=== PATIENT | female | born 1955 | race African-American/Black ===

== ENCOUNTER 2018-08-14 11:52 | Inpatient (IN) | payer MEDICAID, OTHER ==
[~2018-08-14] VITALS: Ht 172.7 cm; Wt 85.3 kg
[2018-08-14] MEDS ORDERED: KETOROLAC 30MG/ML VIAL IV ONE (12:30)
[2018-08-14 14:08] LABS: HEMATOCRIT. 37.9 % (36.0-48.0); HEMOGLOBIN. 12.5 g/dL (12.0-16.0); MEAN CORPUSCULAR HEMOGLOBIN 29.2 pg (28.0-32.0); MEAN CORPUSCULAR VOLUME 88.3 fL (81.0-99.0); MEAN PLATELET VOLUME 8.5 fl (7.4-10.4); PLATELET 353 x1000/uL (130-400); RED BLOOD CELL COUNT 4.29 mill/uL (4.2-5.4); RED CELL DISTRIBUTION WIDTH 13.7 % (11.6-14.6)
[2018-08-14 14:16] LABS: CHLORIDE 101 mEq/L (98-107); ETHANOL BLOOD < 10 mg/dL
[2018-08-14 14:24] LABS: PLATELET ESTIMATE NORMAL
[2018-08-14] MEDS ORDERED: SODIUM CHLORIDE 0.9% 500 ML IV ONE (14:45)
[2018-08-14 18:32] VITALS: BP 91/66
[2018-08-14 20:00] VITALS: BP 150/68
[2018-08-14] MEDS ORDERED: CLONIDINE 0.1MG TABLET PO PRN (20:30)
[2018-08-14] MEDS ORDERED: ACETAMINOPHEN 325MG TABLET PO PRN (20:30)
[2018-08-14] MEDS ORDERED: DEXTROSE 50% WATER 50ML SYRINGE IV PRN (20:45)
[2018-08-14] MEDS ORDERED: ENOXAPARIN 40MG/0.4ML SYR SUBCUT SCH (21:00)
[2018-08-14] MEDS: LOSARTAN POTASSIUM 25 MG TABLET PO SCH (21:39)
[2018-08-14] MEDS: BLOOD SUGAR DIAGNOSTIC STRIP TEST SCH (21:41)
[2018-08-15] VITALS: BP 138/72
[2018-08-15 00:04] LABS: CREATINE KINASE MB FRACTION 1.7 ng/mL (0.5-3.6)
[2018-08-15] MEDS ORDERED: ENOXAPARIN 60MG/0.6ML SYR SUBCUT NR (02:00)
[2018-08-15 04:00] VITALS: BP 111/57
[2018-08-15] MEDS: BLOOD SUGAR DIAGNOSTIC STRIP TEST SCH ×3 (05:46→18:00)
[2018-08-15 06:50] LABS: PROTHROMBIN TIME 9.9 sec (9.1-11.1)
[2018-08-15 06:54] LABS: BASOPHILS % 0.2 % (0.0-2.0); EOSINOPHILS % 2.1 % (0.0-5.0); HEMATOCRIT. 35.3 % (36.0-48.0); HEMOGLOBIN. 11.8 g/dL (12.0-16.0); LYMPHOCYTES % 27.5 % (20.0-50.0); MEAN CORPUSCULAR HEMOGLOBIN 29.8 pg (28.0-32.0); MEAN PLATELET VOLUME 9.1 fl (7.4-10.4); MONOCYTES % 6.7 % (2.0-8.0); NEUTROPHILS % 63.5 % (40.0-76.0); PLATELET 330 x1000/uL (130-400); RED BLOOD CELL COUNT 3.97 mill/uL (4.2-5.4)
[2018-08-15 07:12] LABS: *AMPHETAMINES SCREEN URINE NEGATIVE (NEGATIVE); *BARBITURATES SCREEN URINE NEGATIVE (NEGATIVE); *BENZODIAZEPINES SCREEN URINE NEGATIVE (NEGATIVE); *COCAINE SCREEN URINE PRESUMTIVE POSITIVE (NEGATIVE)
[2018-08-15 07:14] LABS: CANNABINOID URINE SCREEN PRESUMTIVE POSITIVE (NEGATIVE); METHADONE URINE SCREEN NEGATIVE (NEGATIVE); OPIATES URINE SCREEN NEGATIVE (NEGATIVE); PHENCYCLIDINE URINE SCREEN NEGATIVE (NEGATIVE)
[2018-08-15 07:21] LABS: CREATINE KINASE MB FRACTION 1.7 ng/mL (0.5-3.6)
[2018-08-15 08:00] VITALS: BP 150/72
[2018-08-15] MEDS ORDERED: LOSARTAN POTASSIUM 25 MG TABLET PO ONE (09:00)
[2018-08-15] MEDS: LOSARTAN POTASSIUM 25 MG TABLET PO SCH (09:37)
[2018-08-15] MEDS: SODIUM CHLORIDE 0.9% 1,000 ML IV SCH (11:45)
[2018-08-15 12:00] VITALS: BP 140/72
[2018-08-15] MEDS: ENOXAPARIN 100MG/ML SYR SUBCUT SCH (13:59)
[2018-08-15] MEDS: ASPIRIN 81MG EC TABLET PO SCH (15:10)
[2018-08-15] MEDS: AMLODIPINE 2.5MG TABLET PO SCH (15:14)
[2018-08-15 16:00] VITALS: BP 141/62
[2018-08-15 16:34] LABS: CREATINE KINASE 79 IU/L (26-192); CREATINE KINASE MB FRACTION < 1.0 ng/mL (0.5-3.6)
[2018-08-15 20:00] VITALS: BP 145/51
[2018-08-16] VITALS (7 sets, daily range): BP systolic 132–186; BP diastolic 59–85
[2018-08-16] MEDS: BLOOD SUGAR DIAGNOSTIC STRIP TEST SCH ×3 (00:11→12:10)
[2018-08-16] MEDS: ENOXAPARIN 100MG/ML SYR SUBCUT SCH ×2 (02:35→15:59)
[2018-08-16] MEDS: SODIUM CHLORIDE 0.9% 1,000 ML IV SCH (04:43)
[2018-08-16 07:16] LABS: CHLORIDE 108 mEq/L (98-107)
[2018-08-16 07:18] LABS: BASOPHILS % 0.4 % (0.0-2.0); EOSINOPHILS % 2.5 % (0.0-5.0); HEMATOCRIT. 35.2 % (36.0-48.0); HEMOGLOBIN. 11.7 g/dL (12.0-16.0); MEAN CORPUSCULAR HEMOGLOBIN 29.7 pg (28.0-32.0); MEAN CORPUSCULAR VOLUME 89.6 fL (81.0-99.0); MEAN PLATELET VOLUME 9.1 fl (7.4-10.4); MONOCYTES % 7.5 % (2.0-8.0); NEUTROPHILS % 62.6 % (40.0-76.0); PLATELET 290 x1000/uL (130-400); RED BLOOD CELL COUNT 3.93 mill/uL (4.2-5.4); RED CELL DISTRIBUTION WIDTH 13.8 % (11.6-14.6)
[2018-08-16 07:51] LABS: HDL CHOLESTEROL 43 mg/dL (40-59); LDL CHOLESTEROL 83 mg/dL (5-100)
[2018-08-16] MEDS: AMLODIPINE 2.5MG TABLET PO SCH ×2 (09:00→12:18)
[2018-08-16] MEDS: LOSARTAN POTASSIUM 25 MG TABLET PO SCH (10:08)
[2018-08-16] MEDS: ASPIRIN 81MG EC TABLET PO SCH (10:08)
[2018-08-16] MEDS ORDERED: AMLODIPINE 10MG TABLET PO SCH (16:30)
[2018-08-16] MEDS ORDERED: HYDROCHLOROTHIAZIDE 25MG TABLET PO SCH (16:30)
[2018-08-16] MEDS ORDERED: INFLUENZA VIRUS VACCINE(AFLURIA) 0.5ML SYR IM ONE (17:30)
== END 2018-08-16 17:45 | disposition home or self-care (01) | DRG 190 ==
LOC: ER 12:14 → 5WST 15:05 → EDBEDREQTM 15:07 → EDBEDREQ 15:07 → ENRESERV 16:47
PROVIDERS: ADMIT Internal Medicine; ATTEND Internal Medicine
DX: I21.4 Non-ST elevation (NSTEMI) myocardial infarction (principal); I11.9 Hypertensive heart disease without heart failure; E86.0 Dehydration; I45.81 Long QT syndrome; D72.829 Elevated white blood cell count, unspecified; F14.10 Cocaine abuse, uncomplicated; J45.909 Unspecified asthma, uncomplicated; Z71.51 Drug abuse counseling and surveillance of drug abuser; Z91.013 Allergy to seafood; Z91.018 Allergy to other foods
CPT/HCPCS: 36415; 71045; 80048; 80061; 80305; 82550; 82553; 82962; 83036; 83735; 83880; 84443; 84484; 85379; 90686; 93005; 93306; 96361; 96374; 99285; G0482; J1650; J1885; J7030; J7040

== ENCOUNTER 2019-12-14 06:32 | Inpatient (IN) | payer MEDICAID ==
[~2019-12-14] VITALS: Ht 175.3 cm; Wt 91.6 kg
[2019-12-14] MEDS ORDERED: IPRATROPIUM BROMIDE (0.02%) 0.5MG/2.5ML NEB HHN STA (06:38)
[2019-12-14] MEDS ORDERED: ALBUTEROL (0.083%) 2.5MG/3ML NEB HHN STA (06:38)
[2019-12-14] MEDS ORDERED: MAGNESIUM 2 G PREMIX 50 ML IV STA (06:38)
[2019-12-14] MEDS ORDERED: METHYLPREDNISOLONE SOD SUCC 125 MG/2 ML VIAL IV STA (06:38)
[2019-12-14] MEDS ORDERED: ONDANSETRON HCL 4MG/2ML INJ IV STA (06:51)
[2019-12-14] MEDS ORDERED: SODIUM CHLORIDE 0.9% 1,000 ML IV ONE (06:51)
[2019-12-14] MEDS ORDERED: MORPHINE SULFATE 4 MG/ML CPJ (NOT FOR IM USE) IV STA (06:51)
[2019-12-14 07:48] LABS: INR 0.9
[2019-12-14 09:14] LABS: BASOPHILS % 0.3 % (0.0-2.0); EOSINOPHILS % 4.4 % (0.0-5.0); HEMATOCRIT. 33.3 % (36.0-48.0); LYMPHOCYTES % 19.9 % (20.0-50.0); MEAN CORPUSCULAR HEMOGLOBIN 29.3 pg (28.0-32.0); MEAN CORPUSCULAR VOLUME 89.3 fL (81.0-99.0); MEAN PLATELET VOLUME 8.9 fl (7.4-10.4); MONOCYTES % 3.3 % (2.0-8.0); NEUTROPHILS % 72.1 % (40.0-76.0); PLATELET 304 x1000/uL (130-400); RED BLOOD CELL COUNT 3.73 mill/uL (4.2-5.4); RED CELL DISTRIBUTION WIDTH 14.6 % (11.6-14.6)
[2019-12-14 09:17] LABS: CHLORIDE 110 mEq/L (98-107)
[2019-12-14 09:29] LABS: BG BASE EXCESS -2.4 mmol/L (-2.0-2.0); BG CARBOXYHEMOGLOBIN 0.2 % (0.5-1.5); BG DEOXYHEMOGLOBIN 3.4 % (0.0-5.0); BG FRACTION INSPIRED OXYGEN 21; BG HCO3 ACT 22.4 mmol/L (22.0-26.0); BG METHEMOGLOBIN 0.3 % (0.0-1.5); BG OXYGEN SATURATION 96.6 % (92.0-98.5); BG OXYHEMOGLOBIN 96.1 % (94.0-97.0); BG PCO2 38.9 mmHg (35.0-45.0); BG PH 7.379 (7.350-7.450); BG PO2 94.5 mmHg (75.0-100.0); BG SAMPLE SITE RIGHT RADIAL; BG TOTAL HEMOGLOBIN 10.6 g/dL (12.0-18.0); BG VENT MODE ROOM AIR
[2019-12-14] MEDS ORDERED: ACETAMINOPHEN 325MG TABLET PO PRN (13:15)
[2019-12-14] MEDS ORDERED: IPRATROPIUM/ALBUTEROL 0.5-3(2.5)MG/3ML NEB NEB PRN (13:15)
[2019-12-14] MEDS ORDERED: HYDROCODONE/ACETAMINOPHEN 5/325MG TABLET PO PRN (13:15)
[2019-12-14] MEDS ORDERED: CLONIDINE 0.1MG TABLET PO PRN (13:15)
[2019-12-14] MEDS ORDERED: LEVOFLOXACIN 500MG PREMIX 100 ML IV SCH (13:45)
[2019-12-14] MEDS: SODIUM CHLORIDE 0.9% 1,000 ML IV SCH (13:48)
[2019-12-14] MEDS ORDERED: METRONIDAZOLE 500 MG PREMIX 100 ML IV NR (14:30)
[2019-12-14 15:15] VITALS: BP 135/56
[2019-12-14] MEDS: MORPHINE SULFATE 2 MG/ML CPJ (NOT FOR IM USE) IV PRN ×2 (15:33→16:05)
[2019-12-14 16:00] VITALS: BP_SYST 129; BP_SYST 135; BP_DIAS 49; BP_DIAS 56
[2019-12-14] MEDS: METRONIDAZOLE 500 MG PREMIX 100 ML IV SCH (18:42)
[2019-12-14 20:00] VITALS: BP 130/57
[2019-12-14] MEDS ORDERED: INFLUENZA VIRUS VACCINE(AFLURIA) 0.5ML SYR IM ONE (20:30)
[2019-12-15] VITALS: BP 116/61
[2019-12-15] MEDS: METRONIDAZOLE 500 MG PREMIX 100 ML IV SCH ×3 (00:46→18:31)
[2019-12-15] MEDS: SODIUM CHLORIDE 0.9% 1,000 ML IV SCH ×3 (00:51→17:05)
[2019-12-15 04:00] VITALS: BP 117/61
[2019-12-15] MEDS: MORPHINE SULFATE 2 MG/ML CPJ (NOT FOR IM USE) IV PRN ×4 (05:43→23:37)
[2019-12-15 08:00] VITALS: BP_SYST 124; BP_SYST 148; BP_DIAS 50; BP_DIAS 56; BP_DIAS 58
[2019-12-15 08:03] LABS: BASOPHILS % 0.3 % (0.0-2.0); EOSINOPHILS % 4.6 % (0.0-5.0); HEMATOCRIT. 25.4 % (36.0-48.0); HEMOGLOBIN. 8.6 g/dL (12.0-16.0); LYMPHOCYTES % 35.4 % (20.0-50.0); MEAN CORPUSCULAR HEMOGLOBIN 29.9 pg (28.0-32.0); MEAN CORPUSCULAR VOLUME 88.4 fL (81.0-99.0); MEAN PLATELET VOLUME 8.9 fl (7.4-10.4); MONOCYTES % 5.4 % (2.0-8.0); NEUTROPHILS % 54.3 % (40.0-76.0); PLATELET 263 x1000/uL (130-400); RED BLOOD CELL COUNT 2.88 mill/uL (4.2-5.4); RED CELL DISTRIBUTION WIDTH 14.7 % (11.6-14.6)
[2019-12-15] MEDS: ONDANSETRON HCL 4MG/2ML INJ IV PRN ×2 (09:32→20:18)
[2019-12-15 12:00] VITALS: BP 143/61
[2019-12-15 13:47] LABS: CHLORIDE 113 mEq/L (98-107)
[2019-12-15] MEDS ORDERED: LEVOFLOXACIN 500MG PREMIX 100 ML IV SCH (14:00)
[2019-12-15 14:24] LABS: TOTAL IRON BINDING CAPACITY 306 ug/dL (250-450)
[2019-12-15 14:47] LABS: FOLIC ACID (FOLATE) SERUM 7.3 ng/mL (>5.38)
[2019-12-15 16:00] VITALS: BP 143/61
[2019-12-15 20:00] VITALS: BP 157/70
[2019-12-15] MEDS: FAMOTIDINE 20MG/2ML VIAL IV SCH (21:08)
[2019-12-16] VITALS: BP 158/63
[2019-12-16] MEDS: METRONIDAZOLE 500 MG PREMIX 100 ML IV SCH ×3 (02:37→17:31)
[2019-12-16 02:41] LABS: HEMATOCRIT 23.2 % (36.0-48.0); HEMOGLOBIN 7.8 g/dL (12.0-16.0)
[2019-12-16 04:15] VITALS: BP 161/82
[2019-12-16 07:47] LABS: HEMATOCRIT 23.9 % (36.0-48.0); HEMOGLOBIN 8.1 g/dL (12.0-16.0)
[2019-12-16 08:00] VITALS: BP 129/60
[2019-12-16] MEDS: FAMOTIDINE 20MG/2ML VIAL IV SCH ×2 (09:47→20:26)
[2019-12-16] MEDS: LEVOFLOXACIN 500MG PREMIX 100 ML IV SCH (09:47)
[2019-12-16] MEDS: SODIUM CHLORIDE 0.9% 1,000 ML IV SCH (09:48)
[2019-12-16 10:02] LABS: *BARBITURATES SCREEN URINE NEGATIVE (NEGATIVE)
[2019-12-16 10:03] LABS: *AMPHETAMINES SCREEN URINE NEGATIVE (NEGATIVE); *BENZODIAZEPINES SCREEN URINE NEGATIVE (NEGATIVE); *COCAINE SCREEN URINE PRESUMTIVE POSITIVE (NEGATIVE); METHADONE URINE SCREEN NEGATIVE (NEGATIVE); OPIATES URINE SCREEN PRESUMTIVE POSITIVE (NEGATIVE); PHENCYCLIDINE URINE SCREEN NEGATIVE (NEGATIVE)
[2019-12-16 10:04] LABS: CANNABINOID URINE SCREEN NEGATIVE (NEGATIVE)
[2019-12-16 12:00] VITALS: BP 155/58
[2019-12-16 12:53] LABS: HEMATOCRIT 27.2 % (36.0-48.0)
[2019-12-16] MEDS: ONDANSETRON HCL 4MG/2ML INJ IV PRN (14:24)
[2019-12-16 16:00] VITALS: BP 163/75
[2019-12-16] MEDS: MORPHINE SULFATE 2 MG/ML CPJ (NOT FOR IM USE) IV PRN (17:31)
[2019-12-16 20:00] VITALS: BP 130/64
[2019-12-16 20:35] LABS: HEMATOCRIT 26.3 % (36.0-48.0); HEMOGLOBIN 8.7 g/dL (12.0-16.0)
[2019-12-17] VITALS: BP 134/74
[2019-12-17] MEDS: METRONIDAZOLE 500 MG PREMIX 100 ML IV SCH ×2 (01:28→09:06)
[2019-12-17] MEDS: SODIUM CHLORIDE 0.9% 1,000 ML IV SCH (01:28)
[2019-12-17] MEDS: MORPHINE SULFATE 2 MG/ML CPJ (NOT FOR IM USE) IV PRN (01:47)
[2019-12-17 04:00] VITALS: BP 150/54
[2019-12-17 05:19] LABS: HEMATOCRIT 24.7 % (36.0-48.0); HEMOGLOBIN 8.3 g/dL (12.0-16.0)
[2019-12-17 08:00] VITALS: BP 137/57
[2019-12-17] MEDS: FAMOTIDINE 20MG/2ML VIAL IV SCH (09:07)
[2019-12-17] MEDS: LEVOFLOXACIN 500MG PREMIX 100 ML IV SCH (11:45)
[2019-12-17 12:00] VITALS: BP 123/66
[2019-12-17 14:07] VITALS: BP 123/66
== END 2019-12-17 15:45 | disposition home or self-care (01) | DRG 244 ==
LOC: ER 06:32 → 5WST 11:05 → ENRESERV 14:09
PROVIDERS: ADMIT Hospitalist; ATTEND Hospitalist
DX: K57.32 Diverticulitis of large intestine without perforation or abscess without bleeding (principal); E86.0 Dehydration; I10 Essential (primary) hypertension; J45.909 Unspecified asthma, uncomplicated; R55 Syncope and collapse; M79.605 Pain in left leg; R07.89 Other chest pain; Z91.02 Food additives allergy status; Z91.013 Allergy to seafood; Z88.8 Allergy status to other drugs, medicaments and biological substances; Z91.018 Allergy to other foods
CPT/HCPCS: 36415; 36600; 71045; 74176; 80053; 80305; 82270; 82375; 82607; 82746; 82805; 83540; 83550; 83880; 84484; 85014; 85018; 85025; 86850; 86900; 90686; 93970; 94640; 97162; 99285; J1956; J2270; J2405; J3490; J7030